=== PATIENT | male | born 1975 | race Caucasian/White ===

== ENCOUNTER 2022-01-10 12:18 | Emergency (ER) | payer SELFPAY ==
[2022-01-10] MEDS ORDERED: ASPIRIN 81 MG CHEWABLE TABLET ONE (13:03)
[2022-01-10 13:30] LABS: Absolute Lymphocytes (CBC) 1.5 K/uL (0.7-4.9); Hematocrit 45.1 % (39.6-49.0); Lymphocytes % 30.7 % (15.3-44.8); MCV 101.1 fL (80-100); MPV 8.6 fL (7.6-11.3); RBC Red Blood Cell Count 4.47 M/uL (4.33-5.43)
--- NOTE | 2022-01-10 13:38 | RAD REPORT ---
EXAM DESCRIPTION: Bne Single View01/10/2022 1:20 pm CLINICAL HISTORY: Chest pain COMPARISON: none FINDINGS: The lungs appear clear of acute infiltrate. The heart is normal size IMPRESSION: No acute abnormalities displayed
[2022-01-10 13:44] LABS: Magnesium 2.3 mg/dL (1.8-2.4)
--- NOTE | 2022-01-10 14:06 | EDPHYS ---
Physician Documentation [facility] Name: Александр Gutiérrez Age: 46 yrs Sex: Male : 1975 Arrival Date: 01/10/2022 Time: 12:19 Bed 11 Private MD: ED Physician Maged Mayer HPI: 01/10 12:50 This 46 yrs old Male presents to ER via Ambulatory with complaints of Arm Pain. cp 12:50 The patient or guardian complains of pain, that is acute. cp 12:50 The complaints affect the left tricep, left elbow and palmar aspect of left forearm. cp 12:50 Onset: The symptoms/episode began/occurred 3 day(s) ago. cp 12:50 Associated signs and symptoms: Pertinent negatives: decreased range of motion, cp deformity, fever, numbness, tingling, warmth, weakness, chest pain. 12:50 Patient reports intermittent pain to left upper arm that radiates to left elbow and cp proximal left elbow times 3 days. Patient denies injury and reports he is concerned that this may be cardiac related. Patient denies chest pain, denies shortness of breath. Historical: - Allergies: 12:37 No Known Allergies; ap3 - Home Meds: 12:37 None [Active]; ap3 - PMHx: 12:37 None; ap3 - PSHx: 12:37 None; ap3 - Immunization history:: Adult Immunizations up to date. - Social history:: Patient/guardian denies using tobacco products, Smoking status: Patient denies any tobacco usage or history of. ROS: 12:55 MS/extremity: Positive for pain, of the left upper arm and left elbow, Negative for cp injury or acute deformity, decreased range of motion, paresthesias. 12:55 Constitutional: Negative for body aches, chills, fever, poor PO intake. cp 12:55 Eyes: Negative for injury, pain, redness, and discharge. cp 12:55 Neck: Negative for pain with movement, pain at rest, stiffness. 12:55 Cardiovascular: Negative for chest pain, edema, palpitations. 12:55 Respiratory: Negative for cough, shortness of breath, wheezing. 12:55 Abdomen/GI: Negative for abdominal pain, nausea, vomiting, and diarrhea. 12:55 Neuro: Negative for altered mental status, headache, numbness, weakness. 12:55 All other systems are negative. Exam: 13:00 Constitutional: The patient appears in no acute distress, alert, awake, cp non-diaphoretic, non-toxic, well developed, well nourished. 13:00 Head/Face: Normocephalic, atraumatic. cp 13:00 Eyes: Periorbital structures: appear normal, Conjunctiva: normal, no exudate, no injection, Sclera: no appreciated abnormality, Lids and lashes: appear normal, bilaterally. 13:00 ENT: External ear(s): are unremarkable, Nose: is normal, Mouth: Lips: moist, Oral mucosa: moist, Posterior pharynx: Airway: no evidence of obstruction, patent. 13:00 Neck: ROM/movement: is normal, is supple, without pain, no range of motions limitations, no nuchal rigidity. 13:00 Chest/axilla: Inspection: normal, Palpation: is normal, no crepitus, no tenderness. 13:00 Cardiovascular: Rate: normal, Rhythm: regular, Heart sounds: murmur, not appreciated, Edema: is not appreciated, JVD: is not appreciated. 13:00 Respiratory: the patient does not display signs of respiratory distress, Respirations: normal, no use of accessory muscles, no retractions, labored breathing, is not present, Breath sounds: are clear throughout, no decreased breath sounds, no stridor, no wheezing. 13:00 Abdomen/GI: Exam negative for discomfort, distension, guarding, Inspection: abdomen appears normal. 13:00 Back: pain, is absent, ROM is normal. 13:00 Musculoskeletal/extremity: Extremities: grossly normal except: noted in the left upper arm: mild tenderness to palpation, There is no evidence of decreased ROM, deformity, erythema, swelling, ROM: full active range of motion, in the left arm, Pulses: noted to be 2+ in the right radial artery and left radial artery, the left arm Sensation intact. 13:00 Skin: cellulitis, is not appreciated, no rash present. 13:23 ECG was reviewed by the Attending Physician. cp Vital Signs: 12:34 BP 120 / 95; Pulse 66; Resp 16; Temp 97.5(TE); Pulse Ox 100% on R/A; Weight 102.06 kg ap3 (R); Height 6 ft. 1 in. (185.42 cm); Pain 5/10; 12:34 Body Mass Index 29.68 (102.06 kg, 185.42 cm) ap3 MDM: 12:39 Patient medically screened. cp 14:05 Data reviewed: vital signs, nurses notes, lab test result(s), EKG, radiologic studies, cp plain films. 14:05 Differential diagnosis: closed fracture, contusion, DVT, acute VT. Test interpretation: cp by ED physician or midlevel provider: ECG, plain radiologic studies. Counseling: I had a detailed discussion with the patient and/or guardian regarding: the historical points, exam findings, and any diagnostic results supporting the discharge/admit diagnosis, lab results, radiology results, the need for outpatient follow up, a family practitioner, to return to the emergency department if symptoms worsen or persist or if there are any questions or concerns that arise at home. 01/10 12:48 Order name: Basic Metabolic Panel; Complete Time: 13:46 01/10 13:46 Interpretation: Normal except: CL 109; GFR 74. 01/10 12:48 Order name: CBC with Diff; Complete Time: 13:46 01/10 13:46 Interpretation: Normal except: MCV 101.1; MCH 35.4; PLT 140. 01/10 12:48 Order name: Magnesium; Complete Time: 13:46 01/10 13:47 Interpretation: Reviewed. 01/10 12:48 Order name: Troponin HS; Complete Time: 13:46 01/10 13:47 Interpretation: Troponin HS 4.0; Reviewed. 01/10 12:48 Order name: XRAY Chest (1 view); Complete Time: 13:46 01/10 13:46 Interpretation: Report review. 01/10 12:48 Order name: EKG; Complete Time: 12:49 01/10 12:48 Order name: Cardiac monitoring; Complete Time: 13:17 01/10 12:48 Order name: EKG - Nurse/Tech; Complete Time: 13:17 01/10 12:48 Order name: IV Saline Lock; Complete Time: 13:17 01/10 12:48 Order name: Labs collected and sent; Complete Time: 13:17 01/10 12:48 Order name: O2 Per Protocol; Complete Time: 12:50 01/10 12:48 Order name: O2 Sat Monitoring; Complete Time: 12:50 cp EC:23 Rate is 55 beats/min. Rhythm is regular. [place] interval is normal. QRS interval is normal. cp QT interval is normal. T waves are Inverted in leads III, aVR. Interpreted by me. Reviewed by me. Administered Medications: 12:57 Drug: Aspirin Chewable Tablet 324 mg Route: PO; ap3 14:13 Follow up: Response: No adverse reaction ap3 Disposition Summary: 01/10/22 14:05 Discharge Ordered Location: Home cp Problem: new cp Symptoms: have improved cp Condition: Stable cp Diagnosis - Pain in left arm cp Followup: cp - With: Private Physician - When: 2 - 3 days - Reason: Recheck today's complaints Discharge Instructions: - Discharge Summary Sheet cp - Musculoskeletal Pain cp Forms: - Medication Reconciliation Form cp - Thank You Letter cp - Antibiotic Education cp - Prescription Opioid Use cp Prescriptions: - Ibuprofen 800 mg Oral Tablet - take 1 tablet by ORAL route every 8 hours As needed take with food; 30 tablet; cp Refills: 0, Product Selection Permitted Signatures: Dispatcher [employer] EDMS Maged Underwood PA PA cp Cecilia Gomes RN RN ap3 Corrections: (The following items were deleted from the chart) 01/11 13:52 13:50 The patient or guardian complains of injury, pain, that is acute, cp cp 13:52 13:50 The complaints affect the cp cp
--- NOTE | 2022-01-10 14:06 | ER ---
Nurse's Notes [facility] Name: Александр Gutiérrez Age: 46 yrs Sex: Male : 1975 Arrival Date: 01/10/2022 Time: 12:19 Bed 11 Private MD: Diagnosis: Pain in left arm Presentation: 01/10 12:35 Chief complaint: Patient states: My left elbow started hurting three days ago and I ap3 have been feeling like I have anxiety attacks due to it. Coronavirus screen: At this time, the client does not indicate any symptoms associated with coronavirus-19. Ebola Screen: No symptoms or risks identified at this time. Initial Sepsis Screen: Does the patient meet any 2 criteria? No. Patient's initial sepsis screen is negative. Does the patient have a suspected source of infection? No. Patient's initial sepsis screen is negative. Risk Assessment: Do you want to hurt yourself or someone else? Patient reports no desire to harm self or others. Onset of symptoms was January 07, 2022. 12:35 Method Of Arrival: Ambulatory ap3 12:35 Acuity: ANDREA 4 ap3 Triage Assessment: 12:37 General: Appears in no apparent distress. Behavior is anxious. Pain: Complains of pain ap3 in left arm. Neuro: Level of Consciousness is awake, alert, obeys commands, Oriented to person, place, time, situation. Cardiovascular: Patient's skin is warm and dry. Respiratory: Airway is patent Respiratory effort is even, unlabored. 12:37 General: Appears in no apparent distress. comfortable, Behavior is anxious. Pain: ap3 Complains of pain in left elbow Pain radiates to dorsal aspect of left forearm and palmar aspect of left forearm Pain currently is 5 out of 10 on a pain scale. EENT: No deficits noted. No signs and/or symptoms were reported regarding the EENT system. Neuro: No deficits noted. Cardiovascular: No deficits noted. Respiratory: No deficits noted. GI: No deficits noted. No signs and/or symptoms were reported involving the gastrointestinal system. : No deficits noted. No signs and/or symptoms were reported regarding the genitourinary system. Derm: No deficits noted. No signs and/or symptoms reported regarding the dermatologic system. Musculoskeletal: Reports pain in left elbow. Historical: - Allergies: 12:37 No Known Allergies; ap3 - Home Meds: 12:37 None [Active]; ap3 - PMHx: 12:37 None; ap3 - PSHx: 12:37 None; ap3 - Immunization history:: Adult Immunizations up to date. - Social history:: Patient/guardian denies using tobacco products, Smoking status: Patient denies any tobacco usage or history of. Screenin:37 Abuse screen: Denies threats or abuse. Nutritional screening: No deficits noted. ap3 Tuberculosis screening: No symptoms or risk factors identified. Fall Risk None identified. Vital Signs: 12:34 BP 120 / 95; Pulse 66; Resp 16; Temp 97.5(TE); Pulse Ox 100% on R/A; Weight 102.06 kg ap3 (R); Height 6 ft. 1 in. (185.42 cm); Pain 5/10; 12:34 Body Mass Index 29.68 (102.06 kg, 185.42 cm) ap3 ED Course: 12:19 Patient arrived in ED. as 12:34 Arm band placed on right wrist. ap3 12:37 Triage completed. ap3 12:37 Cecilia Gomes, MARYA is Primary Nurse. ap3 12:38 Maged Underwood PA is PHCP. cp 12:38 Maged Mayer MD is Attending Physician. cp 12:38 Patient has correct armband on for positive identification. Bed in low position. Call ap3 light in reach. Adult w/ patient. Pulse ox on. NIBP on. Door closed. Noise minimized. 13:17 Inserted saline lock: 20 gauge in right antecubital area, using aseptic technique. ap3 Blood collected. 13:22 XRAY Chest (1 view) In Process Unspecified. EDMS 14:12 No provider procedures requiring assistance completed. IV discontinued, intact, ap3 bleeding controlled, No redness/swelling at site. Pressure dressing applied. Administered Medications: 12:57 Drug: Aspirin Chewable Tablet 324 mg Route: PO; ap3 14:13 Follow up: Response: No adverse reaction ap3 Medication: 14:13 VIS not applicable for this client. ap3 Outcome: 14:05 Discharge ordered by . cp 14:12 Discharged to home ambulatory, with family. ap3 14:12 Condition: good 14:12 Discharge instructions given to patient, family, Instructed on discharge instructions, follow up and referral plans. medication usage, Demonstrated understanding of instructions, follow-up care, medications, Prescriptions given X 1. 14:13 Patient left the ED. ap3 Signatures: Dispatcher [employer] Lorraine Reynolds Corey, PA PA cp Prokisch, Amanda, RN RN ap3
[2022-01-10 14:26] VITALS: BP 120/95; TEMP 97.5; O2SAT 100
--- NOTE | 2022-01-11 08:57 | EKG ---
Test Date: 2022-01-10 Test Time: 13:16:37 [place]: ALP MEASUREMENT RESULTS: Intervals: Rate: 61 AL: 130 QRSD: 96 QT: 462 QTc: 465 [place]: P: 38 AL: 130 QRS: 44 T: 30 INTERPRETIVE STATEMENTS: Normal sinus rhythm Nonspecific ST and T wave abnormality Prolonged QT Abnormal ECG No previous ECG available for comparison Electronically Signed On 01-11-22 08:55:56 CDT by Neil Greer
--- NOTE | 2022-01-13 08:15 | EKG ---
Test Date: 2022-01-10 Test Time: 13:17:17 R Programmer: ALP MEASUREMENT RESULTS: Intervals: Rate: 55 [place]: 132 QRSD: 100 QT: 442 QTc: 422 [place]: P: 38 [place]: 132 QRS: 46 T: 36 INTERPRETIVE STATEMENTS: Sinus bradycardia Otherwise normal ECG Compared to ECG 01/10/2022 13:16:37 Sinus rhythm no longer present ST (T wave) deviation no longer present Prolonged QT interval no longer present Electronically Signed On 01-13-22 08:07:11 CDT by Neil Greer
== END 2022-01-10 14:13 | disposition home or self-care (01) ==
LOC: ER 12:18
DX: M79.602 Pain in left arm (principal)
CPT/HCPCS: 36415; 71045; 80048; 83735; 84484; 85025; 93005; 99284